=== PATIENT | female | born 1980 | race African-American/Black ===

== ENCOUNTER 2019-08-04 13:29 | Emergency (ER) | payer OTHER ==
[~2019-08-04] VITALS: Ht 154.9 cm; Wt 54.4 kg
[~2019-08-04 13:29] MED LIST: IBUPROFEN 600600 M1 PO
[2019-08-04] MEDS ORDERED: BACTRIM DS TAB1 EACH PO (14:04)
[2019-08-04] MEDS ORDERED: PREDNISONE 20 M20 M1 PO (14:04)
[2019-08-04 14:25] VITALS: BP 141/90
== END 2019-08-04 14:25 | disposition home or self-care (01) ==
LOC: M.ERS 13:29
DX: L23.7 Allergic contact dermatitis due to plants, except food (principal); Z88.1 Allergy status to other antibiotic agents

== ENCOUNTER → 2020-01-22 | Outpatient (CLI) | payer OTHER ==
[~2020-01-22] MED LIST changes: +BACTRIM DS TAB1 EACH PO; +PREDNISONE 20 M20 M1 PO
== END ==
LOC: M.RAD 15:46
PROVIDERS: ATTEND Internal Medicine
DX: M25.572 Pain in left ankle and joints of left foot (principal); M79.672 Pain in left foot

== ENCOUNTER → 2020-02-13 | Outpatient (CLI) | payer OTHER | LOC: M.RAD 02-06 11:30 | PROVIDERS: ATTEND Orthopaedic Surgery | DX: M25.775 Osteophyte, left foot (principal); S92.512S Displaced fracture of proximal phalanx of left lesser toe(s), sequela; M79.672 Pain in left foot; X58.XXXS Exposure to other specified factors, sequela ==